=== PATIENT | female | born 1945 ===

== ENCOUNTER 2019-08-30 16:06 | Observation (INO) | payer MEDICARE ==
[2019-08-30 16:33] LABS: #Lymphocytes 1.9 thou/uL (1.20-3.40); #Monocytes 0.5 thou/uL (0.11-0.59); #Neutrophils 4.4 thou/uL (1.40-6.50); %Basophils 0.4 % (0.0-1.0); %Eosinophils 0.4 % (0.0-10.0); %Lymphocytes 27.4 % (21.0-51.0); %Monocytes 7.2 % (0.0-10.0); %Neutrophils 64.6 % (42.0-75.0); Mean Corpuscular Hemoglobin 33.4 pg (27.0-31.0); Mean Corpuscular Volume 92.8 fL (78.0-98.0); Mean Platelet Volume 8.4 fL (7.4-10.4); Platelet Count 237 thou/uL (130-400); RBC Distribution Width 11.3 % (11.5-14.5); Red Blood Cell (RBC) Count 4.18 mill/uL (4.20-5.40); White Blood Cell (WBC) Count 6.8 thou/uL (4.8-10.8)
--- NOTE | 2019-08-30 16:44 | RAD ---
EXAM: CHEST ONE VIEW PORTABLE: 08/30/19 HISTORY: Palpitations, heart racing. COMPARISON: None. FINDINGS: Heart size is normal. The lungs are clear. IMPRESSION: No significant acute intrathoracic disease. POS: RRE
[2019-08-30 16:57] LABS: ALT (SGPT) 18 U/L (8-55); AST (SGOT) 17 U/L (5-34); Alkaline Phosphatase 70 U/L (40-110); Anion Gap 17 mmol/L (10-20); BUN (Urea Nitrogen) 13 mg/dL (9.8-20.1); Bilirubin, Total 0.7 mg/dL (0.2-1.2); CK (CPK) 113 U/L (29-168); Calc. Creatinine Clearance 0 mL/min (70-130); Carbon Dioxide 19 mmol/L (23-31); Chloride 102 mmol/L (98-107); Estimated GFR-MDRD 58; Globulin 3.1 g/dL (2.4-3.5); Glucose 185 mg/dL (83-110); Lipase 24 U/L (8-78); Potassium 3.2 mmol/L (3.5-5.1); Protein, Total 8.1 g/dL (6.0-8.3); Sodium 135 mmol/L (136-145)
[2019-08-30] MEDS ORDERED: Lorazepam 2 MG/ML VIAL ONE (17:14)
[2019-08-30] MEDS ORDERED: Aspirin Chewable 81 MG TAB ONE (17:15)
[2019-08-30] MEDS ORDERED: Nitroglycerin 2% Ointment 1 INCH/1 GM Packet ONE (17:15)
--- NOTE | 2019-08-30 18:06 | PDOC.FPRHP ---
- History of Present Illness Chief Complaint: Weakness History of Present Illness: Pt is a 74 yo female with poor PCP follow up who presents to the ED for weakness , full headed feeling while performing an exertional activity. Spells started 2 weeks ago lasting less than minute. Today was the worst she has experienced. She states she has not felt this way before. She did not have chest pain but did endorse some shortness of breath. She routinely is able to ambulate multiple blocks or up stairs without any problem. She is a non-smoker. Her father from cardiac disease at the age of 70. Otherwise she is unaware of other chronic illnesses. Of note she was fasting form 08/21-08/28 and did not eat sweets. In the ED she was given nitro paste for elevated pressures, asa, ativan 1 mg, and NaCl 500 ml bolus. Trop neg x 1. 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 denies: cough, congestion Cardiovascular: denies: chest pain, palpitation, edema, paroxysmal nocturnal dyspnea, orthopnea Gastrointestinal: reports: diarrhea. denies: nausea, vomiting, constipation Skin: denies: rashes, lesions Musculoskeletal: denies: pain, tenderness Neurological: reports: weakness. denies: numbness, syncope Psychological: denies: anxiety, depression - Vital signs BP: 105/100 HR: 90 RR: 18 Tmax: 98.1 Pox: 99% on RA Wt: 59kg - Physical Exam Constitutional: NAD, awake, alert and oriented HEENT: PERRLA, EOMI Neck: FROM, no LAD, no JVD Chest: no-tender to palpation, no lesions Heart: RRR, normal S1/S2, no murmurs/rubs/gallops, pulses present, no edema Lungs: CTAB, no respiratory distress, good air movement, no rales/rhonchi, no wheezing Abdomen: soft, bowel sounds present Musculoskeletal: normal tone, ROM grossly normal Neurological: no focal deficit, CN II-XII intact, normal sensation -Neurological: negative Hints exam Skin: good turgor, capillary refill <2 seconds Heme/Lymphatic: no purpura, no petechia Psychiatric: normal mood and affect, intact recent and remote memory FMR H&P: Results - Labs Result Diagrams: 08/30/19 16:24 08/30/19 16:24 Lab results: WBC 6.8 thou/uL (4.8-10.8) 08/30/19 16:24 Hgb 14.0 g/dL (12.0-16.0) 08/30/19 16:24 Hct 38.8 % (36.0-47.0) 08/30/19 16:24 MCV 92.8 fL (78.0-98.0) 08/30/19 16:24 Plt Count 237 thou/uL (130-400) 08/30/19 16:24 Neutrophils % 64.6 % (42.0-75.0) 08/30/19 16:24 Sodium 135 mmol/L (136-145) L 08/30/19 16:24 Potassium 3.2 mmol/L (3.5-5.1) L 08/30/19 16:24 Chloride 102 mmol/L (98-107) 08/30/19 16:24 Carbon Dioxide 19 mmol/L (23-31) L 08/30/19 16:24 BUN 13 mg/dL (9.8-20.1) 08/30/19 16:24 Creatinine 0.95 mg/dL (0.6-1.1) 08/30/19 16:24 Glucose 185 mg/dL (83-110) H 08/30/19 16:24 Calcium 10.0 mg/dL (7.8-10.44) 08/30/19 16:24 Total Bilirubin 0.7 mg/dL (0.2-1.2) 08/30/19 16:24 AST 17 U/L (5-34) 08/30/19 16:24 ALT 18 U/L (8-55) 08/30/19 16:24 Alkaline Phosphatase 70 U/L (40-110) 08/30/19 16:24 Creatine Kinase 113 U/L (29-168) 08/30/19 16:24 B-Natriuretic Peptide 50.9 pg/mL (0-100) 08/30/19 16:24 Serum Total Protein 8.1 g/dL (6.0-8.3) 08/30/19 16:24 Albumin 5.0 g/dL (3.4-4.8) H 08/30/19 16:24 Lipase 24 U/L (8-78) 08/30/19 16:24 - EKG Interpretation EKG: NSR, V1-V2 pwave inversions, Lateral lead ST depression less than 1 mm - Radiology Interpretation Chest x-ray Status: image reviewed by me, report reviewed by me Additional comment: No cardiac enlargement, no acute abnormalities FMR H&P: A/P - Problem List (1) Hypertensive urgency Current Visit: Yes Status: Acute Code(s): I16.0 - HYPERTENSIVE URGENCY (2) Hypertension Current Visit: Yes Status: Acute Code(s): I10 - ESSENTIAL (PRIMARY) HYPERTENSION (3) Elevated random blood glucose level Current Visit: Yes Status: Acute Code(s): R73.09 - OTHER ABNORMAL GLUCOSE (4) Hypokalemia Current Visit: Yes Status: Acute Code(s): E87.6 - HYPOKALEMIA - Plan Pt is a 74 yo with poor follow up here for: # HTN Urgency - stress test am - start lisinopril 10 now then dose in am - risk stratify - lipid, a1c, tsh - ASA - continue nitro paste - monitor BP's - s/p ativan in ED - trend trops - mg, phos pending # HTN - continue lisinopril in outpt setting; increase needed # Elevated BG - a1c pending # Hypokalemia - replete - repeat in am # Reflux - asymptomatic DVT: Lovenox Fluids: SL Diet: HH, NPO midnight Code: Full Dispo: tele obs FMR H&P: Upper Level - Plan Date/Time: 08/30/191805 PCP: ADRIAN HPI: This is a 74 yo F with reported history of HTN and mitral valve prolapse. She states she has not seen a doctor for at least 3 years. Comes in for episodes of palpitations and generalized weakness which occurred when working outside on the gardening. The episodes lasted <1 min and had some SOB. Denies vertigo, CP, neck pain, or pain in L arm. She denies any one-sided weakness, CAMPOS, or speech changes. Father from cardiac disease in 70s. Distant smoking history. REVIEW OF SYSTEMS: Gen: no fever, chills, or sweats Neuro: no numbness/tingling, no weakness, denies headache Eyes: no visual changes ENT: no hearing changes, no sore throat, no runny nose Resp: no cough, no SOB, no wheeze Card: see hpi GI: no N/V/D, no abdominal pain : no dysuria, no hematuria MSK: no myalgias, no joint pain/stiffness Skin: no rash, no erythema PHYSICAL EXAMINATION: General: NAD, alert and oriented x3 HEENT: PERRLA, EOMI, normal sclera, oropharynx without erythema or exudate Neck: Supple. Full ROM. Heart/Cardiovascular System: RRR, Cap refill < 3 seconds, no rub, no murmur Lungs/Respiratory System: clear to auscultation bilaterally. No increased work of breathing. Room air. Abdomen/Gastro-Intestinal System: no abdominal tenderness, normal bowel sounds Extremities: Warm extremities. No cyanosis or edema. Neuro: No gross deficits appreciated. CN 2-12 grossly intact. No drift upper or lower extremities. No slurred speech or facial droops Psychiatry: Awake, Alert and cooperative with exam Skin: No lesions, rashes, or ulcers Musculoskeletal: Full ROM A/P: # Possible Stable Angina - HEART:6, EKG significant for ST depression lateral leads, trop neg - Stress test AM - Check FLP, A1C, TSH # Palpitations, Qtc prolongation - telemetry, check mag, phos - Qtc 470 # HTN urgency - start Lisinopril # Hx Mitral Valve Prolapse - consider echo pending EF on stress # Hypokalemia - Replace K Fluids: TKO Code status: full PPx: SCD, lovenox Dispo: pending stress Addendum - Attending - Attending Attestation Date/Time: 08/30/19 0470 I personally evaluated the patient and discussed the management with Dr. Rodriguez /Patti I agree with the History, Examination, Assessment and Plan documented above with any addition or exceptions noted below. 74 yo WF PMH HTN (untreated) and mitral valve prolapse with occasional runs of what is likely SVT. Presents following an episode of palpitations that did not resolve like her normal episodes. Developed SOB during event. In ER found to have elevated BP. Exam repeated and agree with above. No murmur or clicks appreciated. Labs reviewed and unremarkable except for low K. CXR negative. EKG shows LVH, atrial dilation, and prolonged QTc internval at 470ms. Observation for HTN urgency and ACS r/o. risk stratify. Pending results of NM stress, will consider TTE due to hx of mitral valve prolapse. correct electrolytes as needed. obs, tele, <2 midnights.
[2019-08-30] MEDS ORDERED: Lisinopril 10 MG TAB PO SCH (19:00)
[2019-08-30] MEDS ORDERED: Potassium Chloride 20 MEQ TAB PO SCH (19:15)
[2019-08-30 19:48] LABS: Cardiac Risk 3.6 (Less than 4.5); Magnesium 2.2 mg/dL (1.6-2.6)
[2019-08-30 19:59] LABS: Hemoglobin A1c 5.1 % (4.0-6.0)
[2019-08-30 20:00] LABS: Phosphorus 1.7 mg/dL (2.3-4.7)
[2019-08-30 20:14] LABS: Troponin I Less than 0.010 ng/mL (< 0.028)
[2019-08-30 20:18] VITALS: BMI 24.3
[2019-08-30] MEDS ORDERED: PHOS-NAK 1 PKT PACK PO PRN (20:19)
[2019-08-30] MEDS ORDERED: PHOS-NAK 1 PKT PACK PO SCH (22:00)
[2019-08-30 23:20] LABS: Troponin I 0.036 ng/mL (< 0.028)
[2019-08-31 04:32] LABS: Phosphorus 3.6 mg/dL (2.3-4.7)
[2019-08-31 04:40] LABS: Anion Gap 9 mmol/L (10-20); BUN (Urea Nitrogen) 9 mg/dL (9.8-20.1); Calc. Creatinine Clearance 58 mL/min (70-130); Calcium 9.2 mg/dL (7.8-10.44); Carbon Dioxide 25 mmol/L (23-31); Chloride 108 mmol/L (98-107); Estimated GFR-MDRD 77; Glucose 96 mg/dL (83-110); Potassium 4.4 mmol/L (3.5-5.1); Sodium 138 mmol/L (136-145)
[2019-08-31 06:46] LABS: Troponin I Less than 0.010 ng/mL (< 0.028)
--- NOTE | 2019-08-31 07:16 | PDOC.FM ---
- Subjective Subjective: NAEO other than elevated BPs but none in severe range. Patient denies any CAMPOS, vision changes, CP, N/V or SOB on exam this AM. - Objective MAR Reviewed: Yes Vital Signs & Weight: Vital Signs (12 hours) Temp Pulse Resp BP BP Pulse Ox 08/31/19 03:17 97.7 F 57 L 14 152/70 H 93 L 08/30/19 23:38 80 168/79 H 08/30/19 23:00 168/79 H 08/30/19 20:09 174/82 H Weight Weight 54.658 kg I&O: 08/30/19 08/31/19 09/01/19 06:59 06:59 06:59 Intake Total 700 Balance 700 Result Diagrams: 08/30/19 16:24 08/31/19 03:53 Phys Exam - Physical Examination Constitutional: NAD HEENT: moist MMs Neck: supple, full ROM Respiratory: clear to auscultation bilateral Cardiovascular: RRR, no significant murmur Musculoskeletal: no edema Neurological: non-focal, moves all 4 limbs Psychiatric: normal affect, A&O x 3 Skin: normal turgor Dx/Plan (1) Chest pain Code(s): R07.9 - CHEST PAIN, UNSPECIFIED Status: Acute (2) HLD (hyperlipidemia) Code(s): E78.5 - HYPERLIPIDEMIA, UNSPECIFIED Status: Chronic (3) Elevated troponin I level Code(s): R79.89 - OTHER SPECIFIED ABNORMAL FINDINGS OF BLOOD CHEMISTRY Status : Resolved (4) CKD (chronic kidney disease) stage 2, GFR 60-89 ml/min Code(s): N18.2 - CHRONIC KIDNEY DISEASE, STAGE 2 (MILD) Status: Suspected (5) Hypertension Code(s): I10 - ESSENTIAL (PRIMARY) HYPERTENSION Status: Chronic - Plan Plan: Pt is a 74 yo with poor follow up here for: # HTN Urgency, resolved - BP initially in the 200s systolic in the ED with associated remote CP. BP still elevated overnight but not to severe range. - Will continue lisinopril 10 QD & add. - ASCVD score of mod-severe after risk stratification. To undergo cardiac stress test this AM. - Continue ASA QD & nitro paste. # HTN - continue lisinopril 10mg QD & will need titration PRN as an outpatient # Elevated BG, resolved - a1c 5.1 # Hypokalemia, resolved - 4.4 this AM # Reflux - asymptomatic # HLD - Start on statin therapy # Suspected CKD II - eGFR 77 this AM. Suspect CKD likely 2/2 uncontrolled HTN. Will make patient aware & avoid nephrotxic agents. DVT: Lovenox Fluids: SL Diet: NPO for stress this AM Code: Full Dispo: Possible d/c today vs. further intervention based on stress test results.
[2019-08-31] MEDS ORDERED: Enoxaparin Sodium 40 MG/0.4 ML SYRINGE SC SCH (09:00)
[2019-08-31] MEDS ORDERED: Lisinopril 10 MG TAB PO SCH (09:00)
[2019-08-31] MEDS ORDERED: Atorvastatin Calcium 40 MG TAB PO SCH (09:00)
[2019-08-31] MEDS ORDERED: hydrALAZINE 20 MG/ML VIAL SLOW IVP PRN (10:17)
--- NOTE | 2019-08-31 13:15 | EKG ---
Test Reason : Blood Pressure : / mmHG Vent. Rate : 100 BPM Atrial Rate : 100 BPM P-R Int : 170 ms QRS Dur : 088 ms QT Int : 368 ms P-R-T Axes : 016 -61 046 degrees QTc Int : 474 ms Normal sinus rhythm Possible Left atrial enlargement Left anterior fascicular block Left ventricular hypertrophy Nonspecific ST and T wave abnormality Prolonged QT Abnormal ECG Confirmed by RHONA CHÁVEZ, SEBAS ([id number]), editorial cartoonist AMA BARRY ([id number]) on 08/31/2019 1:15:34 PM Referred By: Confirmed By:SEBAS MELGOZA MD
[2019-08-31] MEDS ORDERED: Metoprolol Tartrate 100 MG TAB PO SCH (13:45)
[2019-08-31 15:08] VITALS: BP 142/70; TEMP 98.4
--- NOTE | 2019-09-06 07:36 | EKG ---
Test Reason : Blood Pressure : / mmHG Vent. Rate : 108 BPM Atrial Rate : 108 BPM P-R Int : 174 ms QRS Dur : 090 ms QT Int : 352 ms P-R-T Axes : 041 -67 023 degrees QTc Int : 471 ms Sinus tachycardia Possible Left atrial enlargement Left anterior fascicular block Left ventricular hypertrophy Nonspecific ST abnormality Abnormal ECG When compared with ECG of 30-AUG-2019 16:15, (Unconfirmed) Nonspecific T wave abnormality no longer evident in Anterior leads Confirmed by MARITZA MOORE MD ([id number]) on 09/06/2019 7:36:06 AM Referred By: SHOAIB *R Confirmed By:MARITZA MOORE MD
== END 2019-08-31 15:27 | disposition home or self-care (01) ==
LOC: ERS 16:06 → 2NO 17:24
PROVIDERS: ADMIT Family Medicine; ATTEND Family Medicine
DX: I16.0 Hypertensive urgency (principal); I10 Essential (primary) hypertension; E87.6 Hypokalemia; K21.9 Gastro-esophageal reflux disease without esophagitis; R73.09 Other abnormal glucose; Z79.899 Other long term (current) drug therapy; Z87.891 Personal history of nicotine dependence
CPT/HCPCS: 71045; 80048; 80061; 82550; 83036; 83690; 83735; 83880; 84100 ×2; 84484 ×3; 85379; 93005 ×2; 94760 ×2; 96361; 96372; 96374; 96375; 99285; G0378 ×3; 36415; 80053; 84443; 85025; 93010; J0360; J1650; J2060